=== PATIENT | female | born 2000 | race American Indian/Alaskan Native ===

== ENCOUNTER 2020-09-16 13:23 | Emergency (ER) | payer SELFPAY ==
[2020-09-16 14:32] LABS: Eosinophils # (Auto) 0.1 K/mm3 (0.0-0.4); Hemoglobin 13.2 gm/dl (10.1-14.3); Lymphocytes # (Auto) 1.4 K/mm3 (1.2-5.4); Lymphocytes % (Auto) 16.6 % (13.4-35.0); Mean Corpuscular HGB Conc 33 % (30-34); Mean Corpuscular Volume 90 fl (79-97); Monocytes % (Auto) 11.1 % (0.0-7.3); Platelet Count 203 K/mm3 (140-440); Red Blood Count 4.43 M/mm3 (3.65-5.03); Red Cell Distribution Width 13.2 % (13.2-15.2)
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
[2020-09-16 14:38] LABS: BUN/Creatinine Ratio 16; Blood Urea Nitrogen 14 mg/dL (7-17); Calcium 9.6 mg/dL (8.4-10.2); Hemolysis Index 3
[2020-09-16] MEDS: ZIPRASIDONE MESYLATE 20 MG VIAL IM PRN (15:40)
[2020-09-16] MEDS ORDERED: WATER FOR INJ Sterile (PF) 10 ML ONE (15:43)
[2020-09-16 15:53] LABS: Amphetamine Screen,Urine Negative; Benzodiazepines Screen,Urine Negative; Cocaine Screen,Urine Negative; Methadone Screen,Urine Negative; Opiate Screen,Urine Negative
[2020-09-16 16:03] LABS: Bacteria,Urine 2+ /HPF (Negative); Mucus,Urine FEW /HPF
[2020-09-16 16:07] LABS: Cannabinoid Screen,Urine Positive; Color,Urine Yellow (Yellow)
[2020-09-16 16:08] LABS: Bilirubin,Urine Negative (Negative); Blood,Urine Negative (Negative); Protein,Urine <30 mg dL mg/dL (Negative); Urobilinogen,Urine < 2.0 mg/dL (<2.0)
[2020-09-16] MEDS ORDERED: POTASSIUM CHLORIDE ER 20 MEQ TAB PO ONE ×2 (18:40→21:33)
[2020-09-16] MEDS ORDERED: IBUPROFEN 800 MG TAB PO ONE (23:31)
[2020-09-17] MEDS ORDERED: hydrOXYzine PAMOATE 25 MG CAP PO ONE (00:06)
[2020-09-17] MEDS ORDERED: LORazepam 1 MG TAB PO ONE (00:06)
[2020-09-17] MEDS ORDERED: WATER FOR INJ Sterile (PF) 10 ML ONE (05:55)
[2020-09-17] MEDS: ZIPRASIDONE MESYLATE 20 MG VIAL IM PRN ×2 (06:10→10:41)
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
[2020-09-17] MEDS ORDERED: ACETAMINOPHEN 500 MG TAB ONE (11:26)
[2020-09-17] MEDS: risperiDONE 0.25 MG TAB PO SCH ×2 (12:10→21:35)
[2020-09-17] MEDS: hydrOXYzine PAMOATE 25 MG CAP PO SCH ×2 (12:10→21:34)
[2020-09-17] MEDS: DIVALPROEX DR 125 MG TAB PO SCH ×2 (12:10→21:35)
[2020-09-17] MEDS ORDERED: ACETAMINOPHEN 500 MG TAB PO ONE (12:19)
[2020-09-17] MEDS ORDERED: ZIPRASIDONE MESYLATE 20 MG VIAL IM ONE (20:16)
[2020-09-17] MEDS ORDERED: IBUPROFEN 800 MG TAB ONE (21:36)
[2020-09-17] MEDS: IBUPROFEN 800 MG TAB PO ONE ×4 (21:40→21:44)
[2020-09-17] MEDS ORDERED: traZODone 50 MG TAB PO SCH (22:00)
[2020-09-18] MEDS ORDERED: ACETAMINOPHEN 325 MG TAB PO ONE ×2 (05:48→10:33)
[2020-09-18 07:59] VITALS: BP 130/68
[2020-09-18] MEDS ORDERED: ACETAMINOPHEN 325 MG TAB ONE (09:44)
--- NOTE | 2020-09-18 09:52 | Progress Note ---
Subjective - Reason for Consult Consult date: 09/18/20 Reason for consult: psyschosis - Chief Complaint Chief complaint: The patient's medical record was reviewed and the patient's progress was discussed with the nursing staff. The nurse and the sitter state the patient has been fine this morning. The sitter says the patient is only upset when she can't get her way. During my interview with the patient, she is in her room, she is calm and cooperative. She is talkative and asking me about going home. When asking the patient about her aggressive behavior, she replied "ma'am this is just me. I been like this all my life." She then says "I get upset when I don't get what I want." The patient denies SI/HI. She says "I promise I'm not going to do anything like that. I never have." She says "my mom knows I'm in school and I don't know why she's always trying to get me here." The patient then laughs and says, "she's a Paige. That lady is manipulative." The patient denies hallucinations of any kind. She says "only problem I have is anger issues. Nothing else." The patient then says "I know I told you yesterday you could speak to my momma. Please do not do that again. I'm grown and I am in charge of myself." REVIEW OF SYSTEMS Constitutional: Negative for weight loss ENT: Negative for stridor Respiratory: Negative for cough or hemoptysis All other systems reviewed and are negative MSE Appearance: Dressed appropriately. Behavior: calm and cooperative Mood: "good" Affect: Congruent with stated mood Thought Process: Goal directed Speech: Normal tone and pace Thought Content Suicidal: Denies Homicidal: Denies Hallucinations: Denies Delusions: None elicited Consciousness: Alert Cognition/Memory: Limited Insight/Judgment: Limited Diagnoses: Bipolar Disorder Noncompliant with other medical treatment and regimen Plan d/c 1013 Vistaril 25mg po BID Risperidone 0.25mg po BID Depakote DR 125mg po BID Trazodone 50mg po qhs Sitter: Defer to primary Medical: Per primary Disposition: Do not recommend acute inpatient psychiatric treatment. The patient may discharge home once medically cleared. She understands that if suicidal thoughts or thoughts to do harm to anyone else are to arise she is to seek immediate assistance including but not limited to the crisis hotline 911/ER. The reservoir caretaker is to give resources for anger management, cognitive behavior therapy and outpatient The patient is to follow up with outpatient psych in 7 to 14 days upon discharge. Will sign off. Thank you for this consult. Consulted with Dr. Malloy Mental Status Exam - Vital signs Last Vital Signs Temp 97.8 F 09/18/20 07:57 Pulse 95 H 09/18/20 07:57 Resp 18 09/18/20 07:57 BP 130/68 09/18/20 07:57 Pulse Ox 99 09/18/20 07:57
[2020-09-18] MEDS: hydrOXYzine PAMOATE 25 MG CAP PO SCH (10:27)
[2020-09-18] MEDS: DIVALPROEX DR 125 MG TAB PO SCH (10:27)
[2020-09-18] MEDS: risperiDONE 0.25 MG TAB PO SCH (10:42)
[2020-09-18] MEDS ORDERED: ACETAMINOPHEN 325 MG TAB PO PRN (14:35)
== END 2020-09-18 12:40 | disposition home or self-care (01) ==
LOC: ED 13:23
DX: R46.2 Strange and inexplicable behavior (principal); Z79.899 Other long term (current) drug therapy
CPT/HCPCS: 36415; 80048; 80307; 81001; 84703; 85025; 96372; 99284; J3486; Q0177; 80320; G0480

== ENCOUNTER 2021-04-30 20:43 | Emergency (ER) | payer SELFPAY | END 2021-04-30 22:00 | disposition left against medical advice (07) | LOC: ED 20:43 | DX: Z00.8 Encounter for other general examination (principal); Z53.21 Procedure and treatment not carried out due to patient leaving prior to being seen by health care provider ==